=== PATIENT | female | born 1985 | race Caucasian/White ===

== ENCOUNTER 2021-04-06 13:01 | Emergency (ER) | payer OTHER ==
[~2021-04-06] VITALS: Ht 152.4 cm; Wt 77.2 kg
--- NOTE | 2021-04-06 13:23 | PHYS DOC ---
Past History Past Surgical History: No Surgical History Alcohol Use: None Adult General HPI HPI Patient is a 36-year-old female presenting for right upper quadrant pain. This is an acute on chronic issue. Reports this is waxed and waned over last several years but reports acute worsening in last 5 days without any known inciting event, ingestion or trauma. Patient reports classic right upper quadrant pain that worsens with food. It is right upper quadrant and radiates to right posterior shoulder. She went to [facility] for evaluation where she gets all of her care proximately 48 hours ago and had comprehensive work-up that involved labs, right upper quadrant ultrasound and CT abdomen pelvis. There is initial concern for cholelithiasis without cholecystitis and potential for splenic artery aneurysm but CT abdomen pelvis was nonconcerning for any emergent or surgical issues. Patient was subsequently discharged home with strict return precautions and instructions to follow-up with outpatient primary care and surgery for further evaluation. Nonetheless, patient could not get into her primary care physician and did not hear back from outpatient surgeon prompting her to come here for evaluation. She reports ongoing 8/10 severity right upper quadrant pain with radiation around to her back. Nothing known makes better, p.o. intake makes worse. Pain is sharp in nature. No fever, no major changes in baseline health, no recent sick contacts, travel, chest pain, shortness of breath, cough, dysuria Review of Systems Review of Systems Fourteen body systems of review of systems have been reviewed. See HPI for pertinent positives and negative responses, other doss all other systems are negative, non-pertinent or non-contributory Physical Exam Physical Exam Constitutional: Well developed, well nourished, moderate distress due to pain but overall nontoxic in appearance. HENT: Normocephalic, atraumatic, bilateral external ears normal, oropharynx moist, no oral exudates, nose normal. Eyes: PERRLA, EOMI, conjunctiva normal, no discharge. Neck: Normal range of motion, no tenderness, supple, no stridor. Cardiovascular: Heart rate regular, sinus rhythm, no murmurs rubs or gallops Lungs & Thorax: Bilateral breath sounds clear to auscultation Abdomen: Bowel sounds normal, soft, right upper quadrant pain with positive Mcgregor sign, voluntary guarding present, no rebound, no Rovsing, McBurney or obturator signs, no masses, no pulsatile masses. Nonsurgical abdomen, no peritoneal signs Skin: Warm, dry, no erythema, no rash. Back: No tenderness, no CVA tenderness. Extremities: No tenderness, no cyanosis, no clubbing, ROM intact, no edema. Neurologic: Alert and oriented X 3, grossly normal motor & sensory function, no focal deficits noted. Psychologic: Anxious affect and mood Current Patient Data Vital Signs Vital Signs Date Time Temp Pulse Resp B/P (MAP) Pulse Ox O2 Delivery O2 Flow Rate FiO2 04/06/21 13:10 98.1 99 18 147/93 98 04/06/21 14:15 Room Air Vital Signs Date Time Temp Pulse Resp B/P (MAP) Pulse Ox O2 Delivery O2 Flow Rate FiO2 04/06/21 14:15 18 97 Room Air 04/06/21 13:10 98.1 99 147/93 Lab Results Laboratory Tests Test 04/06/21 13:30 04/06/21 14:10 04/06/21 14:35 04/06/21 15:40 White Blood Count 7.6 x10^3/uL Red Blood Count 4.44 x10^6/uL Hemoglobin 13.0 g/dL Hematocrit 38.0 % Mean Corpuscular Volume 86 fL Mean Corpuscular Hemoglobin 29 pg Mean Corpuscular Hemoglobin Concent 34 g/dL Red Cell Distribution Width 13.9 % Platelet Count 256 x10^3/uL Neutrophils (%) (Auto) 63 % Lymphocytes (%) (Auto) 31 % Monocytes (%) (Auto) 5 % Eosinophils (%) (Auto) 0 % Basophils (%) (Auto) 0 % Neutrophils # (Auto) 4.8 x10^3uL Lymphocytes # (Auto) 2.4 x10^3/uL Monocytes # (Auto) 0.4 x10^3/uL Eosinophils # (Auto) 0.0 x10^3/uL Basophils # (Auto) 0.0 x10^3/uL Sodium Level 142 mmol/L Potassium Level 3.5 mmol/L Chloride Level 107 mmol/L Carbon Dioxide Level 17 mmol/L Anion Gap 18 Blood Urea Nitrogen 14 mg/dL Creatinine 0.9 mg/dL Estimated GFR (Cockcroft-Gault) 70.8 BUN/Creatinine Ratio 16 Glucose Level 88 mg/dL Calcium Level 9.5 mg/dL Total Bilirubin 0.7 mg/dL Aspartate Amino Transf (AST/SGOT) 16 U/L Alanine Aminotransferase (ALT/SGPT) 25 U/L Alkaline Phosphatase 61 U/L Troponin I Quantitative < 0.017 ng/mL Total Protein 8.2 g/dL Albumin 4.7 g/dL Albumin/Globulin Ratio 1.3 Urine Collection Type Unknown Urine Color Yellow Urine Clarity Cloudy Urine pH 6.5 Urine Specific Marshall 1.025 Urine Protein 30 mg/dl Urine Glucose (UA) Neg mg/dL Urine Ketones (Stick) >=160 mg/dL Urine Blood Neg Urine Nitrite Neg Urine Bilirubin Mod Urine Urobilinogen Dipstick 4.0 mg/dL Urine Leukocyte Esterase Neg Urine RBC 1-2 /HPF Urine WBC 5-10 /HPF Urine Squamous Epithelial Cells Many /LPF Urine Bacteria 0 /HPF Urine Mucus Marked /LPF Bedside Urine HCG, Qualitative hcg negative SARS-CoV-2 Antigen (Rapid) Negative Current Medications Medications (Trade) Dose Ordered Sig/Gerry Route PRN Reason Start Time Stop Time Status Last Admin Dose Admin Morphine Sulfate (Morphine 4mg Syringe) 4 mg 1X ONCE IV 04/06/21 14:00 04/06/21 14:01 DC 04/06/21 14:15 Sodium Chloride 1,000 ml @ 1,000 mls/hr 1X ONCE IV 04/06/21 14:00 04/06/21 14:59 DC 04/06/21 14:14 Morphine Sulfate (Morphine 4mg Syringe) 4 mg 1X ONCE IV 04/06/21 16:15 04/06/21 16:16 DC 04/06/21 16:19 EKG EKG EKG ordered and interpreted by myself at 1319 hrs. as sinus rhythm at 88 bpm, unremarkable intervals, no axis deviation, no obvious ischemic findings, no STEMI Radiology/Procedures Radiology/Procedures INDICATION: Reason: ruq pain / Spl. Instructions: / History: COMPARISON: None. FINDINGS: Single view of chest obtained. No focal airspace consolidation. Cardiomediastinal contour unremarkable. No acute osseous abnormality. IMPRESSION: * No focal airspace consolidation or edema. Electronically signed by: Logan Thurston MD (04/06/2021 1:59 PM) [id number] /////////////// EXAM: Abdomen sonogram. HISTORY: Pain. TECHNIQUE: Sonographic imaging of the abdomen was performed. COMPARISON: None. FINDINGS: The liver is normal in size. There is hepatic steatosis. There is cholelithiasis. There is a positive sonographic Mcgregor's sign. The common bile duct is normal in caliber. The right kidney is unremarkable. The pancreas, aorta and inferior vena cava are obscured due to bowel gas. IMPRESSION: 1. Cholelithiasis. There is a positive sonographic Mcgregor's sign. However, there is no gallbladder wall thickening or pericholecystic fluid to suggest cholecystitis. Correlate with symptomatology. 2. Obscured midline structures due to bowel gas. 3. Hepatic steatosis. Electronically signed by: Zenaida Marie MD (04/06/2021 2:23 PM) [id number] Heart Score C/O Chest Pain: No HEART Score for Chest Pain: HEART Score for Chest Pain Response (Comments) Value History Slighlty/Non-Suspicious 0 ECG Normal 0 Age < 45 0 Risk Factors No Risk Factors 0 Troponin < Normal Limit 0 Total 0 Risk Factors: Risk Factors: DM, Current or recent (<one month) smoker, HTN, HLP, family history of CAD, obesity. Risk Scores: Risk Factors: DM, Current or recent (<one month) smoker, HTN, HLP, family history of CAD, obesity. Course & Med Decision Making Course & Med Decision Making Airway patent, breathing unremarkable, IV access and vitals obtained that were nonconcerning HPI and physical exam concerning for right upper quadrant pathology. Consent obtained to gather records from [facility]. In the meantime, diagnostic work-up in ER concerning for cholelithiasis with positive Mcgregor sign and absence of any other emergent findings Patient records from [facility] retrieved and reviewed, there is initial concern for potential splenic arterial aneurysm but later CT abdomen pelvis was nonconcerning for any emergent findings. Regardless, [facility] surgeon contacted and case reviewed Joint decision made to transfer over to [facility] for admission and likely surgical intervention in symptomatic patient who likely will fail outpatient follow-up if discharged back into the community with outpatient PCP and general surgery follow-up. Hospitalist at [facility] contacted and case reviewed, they agreed and accepted need for transfer of patient under their care. No indication for antibiotics at present. Stat Covid test performed and negative I have updated patient, mother and brother at bedside on proposed plan of care that included hospital transfer to [facility] and they were amenable. All questions and concerns addressed prior to ER transfer via EMS Critical Care Time This patient required critical care. Due to the fact that the patient required a significant amount of one on one physician - patient contact time, ordering and review of studies, arranging urgent treatment with development of a management plan, evaluation of patients response to treatment with frequent reassessments, and discussions with other providers this patient required 40 minutes of critical care time. Critical care time was indicated due to the inherent instability and/or potential for instability in this patient. The critical care time that is allocated to this patient is above and beyond any time spent on any other billable procedures performed on this patient. Dragon Disclaimer Dragon Disclaimer This electronic medical record was generated, in whole or in part, using a voice recognition dictation system. Departure Departure: Impression: Primary Impression: RUQ abdominal pain Additional Impression: Cholelithiasis Disposition: [address] [place] [address] ([facility]) Admitting Physician: Margaret Kumar Condition: STABLE Referrals: PCP,NO (PCP) Problem Qualifiers VINOD DELVALLE DO Apr 06, 2021 13:23
[2021-04-06 13:45] LABS: CALCIUM 9.5 mg/dL (8.5-10.1); CREATININE 0.9 mg/dL (0.6-1.0); GFR 70.8; POTASSIUM 3.5 mmol/L (3.5-5.1)
[2021-04-06 13:47] LABS: BASO % 0 % (0-3); EOS % 0 % (0-3); LYMPH # 2.4 x10^3/uL (1.0-4.8); LYMPH % 31 % (24-48); MEAN CORPUSCULAR HEMOGLOBIN 29 pg (25-35); MEAN CORPUSCULAR HGB CONC 34 g/dL (31-37); MEAN CORPUSCULAR VOLUME 86 fL (79-100); MONO # 0.4 x10^3/uL (0.0-1.1); MONO % 5 % (0-9); NEUT # 4.8 x10^3uL (1.8-7.7); NEUT % 63 % (31-73); PLATELET COUNT 256 x10^3/uL (140-400); RED BLOOD COUNT 4.44 x10^6/uL (3.50-5.40); RED CELL DISTRIBUTION WIDTH 13.9 % (11.5-14.5); WHITE BLOOD COUNT 7.6 x10^3/uL (4.0-11.0)
[2021-04-06 13:51] LABS: ALBUMIN 4.7 g/dL (3.4-5.0); ALBUMIN/GLOBULIN RATIO 1.3 (1.0-1.7); TOTAL BILIRUBIN 0.7 mg/dL (0.2-1.0); TOTAL PROTEIN 8.2 g/dL (6.4-8.2)
[2021-04-06] MEDS ORDERED: IV NORMAL SALINE 1,000ML 1,000 ML IV ONE (14:00)
[2021-04-06] MEDS ORDERED: MORPHINE SULFATE 4 MG/ML DISP.SYRIN. IV ONE ×2 (14:00→16:15)
--- NOTE | 2021-04-06 14:01 | RAD ---
INDICATION: Reason: ruq pain / Spl. Instructions: / History: COMPARISON: None. FINDINGS: Single view of chest obtained. No focal airspace consolidation. Cardiomediastinal contour unremarkable. No acute osseous abnormality. IMPRESSION: * No focal airspace consolidation or edema. Electronically signed by: Logan Thurston MD (04/06/2021 1:59 PM) [id number]
--- NOTE | 2021-04-06 14:25 | RAD ---
EXAM: Abdomen sonogram. HISTORY: Pain. TECHNIQUE: Sonographic imaging of the abdomen was performed. COMPARISON: None. FINDINGS: The liver is normal in size. There is hepatic steatosis. There is cholelithiasis. There is a positive sonographic Mcgregor's sign. The common bile duct is normal in caliber. The right kidney is unremarkable. The pancreas, aorta and inferior vena cava are obscured due to bowel gas. IMPRESSION: 1. Cholelithiasis. There is a positive sonographic Mcgregor's sign. However, there is no gallbladder wa ll thickening or pericholecystic fluid to suggest cholecystitis. Correlate with symptomatology. 2. Obscured midline structures due to bowel gas. 3. Hepatic steatosis. Electronically signed by: Zenaida Marie MD (04/06/2021 2:23 PM) [id number]
[2021-04-06 14:57] LABS: BILIRUBIN,URINE MOD (NEG); CLARITY,URINE CLOUDY; COLOR,URINE YELLOW; GLUCOSE,URINE NEG (NEG)
[2021-04-06 14:58] LABS: NITRITE,URINE NEG (NEG)
[2021-04-06 15:02] LABS: BACTERIA,URINE 0 /HPF (0-FEW); SQUAMOUS EPITHELIAL CELL,UR MANY /LPF
[2021-04-06 17:20] VITALS: BP 158/59
--- NOTE | 2021-04-06 20:17 | EKG ---
[address] [address] Test Date: 2021-04-06 Test Time: 13:13:59 Pat Name: JING NAGEL Department: Room: Gender: F Padder Cushion: BLANCA : 1985 Requested By: VINOD DELVALLE Order Number: [id number] Reading MD: Rodney Manzano Measurements Intervals [place] Rate: 88 P: 44 [place]: 136 QRS: 53 QRSD: 100 T: 29 QT: 356 QTc: 434 Interpretive Statements SINUS RHYTHM NORMAL ECG RI6.02 No previous ECG available for comparison Electronically Signed On 04-12-2021 12:46:43 CDT by Rodney Manzano
== END 2021-04-06 17:19 | disposition short-term general hospital (02) ==
LOC: ER 13:01
DX: K80.20 Calculus of gallbladder without cholecystitis without obstruction (principal); Z20.822 Contact with and (suspected) exposure to COVID-19
CPT/HCPCS: 36415; 71045; 76705; 80053; 81001; 81025; 84484; 85025; 87086; 87426; 93005; 96361; 96374; 96376; 99285; C9803; J2270; J7030; U0003